=== PATIENT | male | born 1965 | race Caucasian/White ===

== ENCOUNTER 2019-08-08 14:23 | Emergency (ER) | payer OTHER ==
[2019-08-08] MEDS ORDERED: KETOROLAC 60 MG/2 ML VIAL IM STA (14:44)
[2019-08-08] MEDS ORDERED: predniSONE 50 MG TAB PO STA (14:44)
--- NOTE | 2019-08-08 14:46 | ED ---
General Adult HPI - General Chief complaint: Back Pain/Injury Stated complaint: Back Pain Time Seen by Provider: 08/08/19 14:28 Source: patient, RN notes reviewed, old records reviewed Mode of arrival: ambulatory Limitations: no limitations - History of Present Illness Initial comments: 54-year-old male patient with no pertinent past medical history of present CU chief complaint of left paralumbar back pain with radiculopathy extending down his posterior left leg. Patient reports that he did have a herniated disc resulting eye surgery approximately 2 years ago. Patient ports that he has been doing very well ever since including completing a 100 kilometer run within the last 6 months. Patient reports that approximately 2 weeks ago he twisted his back in an akward fashion has now been having left paralumbar back pain radiating down his posterior left leg. Denies any recent falls or trauma. Patient reports that he was seen at another facility approximately 1 week ago where he reportedly had normal lumbar films. Denies any chest pain or shortness of breath. Denies any saddle anesthesia, lower extremity weakness, loss of bowel or bladder control. Systemic: Pt denies fatigue, fever/chills, rash. Pt denies weakness, night sweats, weight loss. Neuro: Pt denies headache, visual disturbances, syncope or pre-syncope. HEENT: Pt denies ocular discharge or irritation, otalgia, rhinorrhea, pharyngitis or notable lymphadenopathy. Cardiopulmonary: Pt denies chest pain, SOB, heart palpitations, dyspnea on exertion. Abdominal/GI: Pt denies abdominal pain, n/v/d. : Pt denies dysuria, burning w/ urination, frequency/urgency. Denies new onset urinary or bowel incontinence. MSK: Pt denies loss of strength or function in extremities. Neuro: Pt denies new onset weakness. - Related Data Previous Rx's Medication Instructions Recorded predniSONE 50 mg PO DAILY #4 tab 08/08/19 Allergies Allergy/AdvReac Type Severity Reaction Status Date / Time No Known Allergies Allergy Verified 08/08/19 14:49 Review of Systems ROS Statement: Those systems with pertinent positive or pertinent negative responses have been documented in the HPI. ROS Other: All systems not noted in ROS Statement are negative. Past Medical History Past Medical History: No Reported History History of Any Multi-Drug Resistant Organisms: None Reported Past Surgical History: Back Surgery Past Psychological History: No Psychological Hx Reported Smoking Status: Never smoker Past Alcohol Use History: None Reported Past Drug Use History: None Reported General Exam - General Exam Comments Initial Comments: Constitutional: NAD, AOX3, Pt has pleasant affect. HEENT: NC/AT, trachea midline, neck supple, no lymphadenopathy. Posterior pharynx non erythematous, without exudates. External ears appear normal, without discharge. Mucous membranes moist. Eyes PERRLA, EOM intact. There is no scleral icterus. No pallor noted. Cardiopulmonary: RRR, no murmurs, rubs or gallops, no JVD noted. Lungs CTAB in anterior and posterior manrique. No peripheral edema. Abdominal exam: Abdomen soft and non-distended. Abdomen non-tender to palpation in all 4 quadrants. Bowel sounds active in LLQ. No hepatosplenomegaly. No ecchymosis Neuro: CN II-XII grossly intact. No nuchal rigidity. No raccon eyes, no erickson sign, no hemotympanum. No cervical spinal tenderness. MSK: Left paralumbar region mildly tender to palpation. No midline cervical thoracic lumbar tenderness. Ambulatory without difficulty, heel to toe walking intact. Left straight leg raise positive. Right straight leg raise negative. Distal pulses intact and equal. No posterior calf tenderness bilaterally, homans sign negative bilaterally. No erythema or skin changes. Posterior tibialis and radial pulse +2 bilaterally. Sensation intact in upper and lower extremities. Full active ROM in upper and lower extremities, 5/5 stregnth. Limitations: no limitations Course Vital Signs 08/08/19 14:46 Temperature 97 F L Pulse Rate 69 Respiratory 18 Rate Blood Pressure 156/89 O2 Sat by Pulse 98 Oximetry Medical Decision Making - Medical Decision Making 54-year-old male patient with no pertinent past medical history of presents to ED with chief complaint of left paralumbar back pain with radiculopathy extending down his posterior left leg. Patient reports that he did have a herniated disc resulting in surgery approximately 2 years ago. Patient reports that he has been doing very well ever since including completing a 100 kilometer run within the last 6 months. Patient reports that approximately 2 weeks ago he twisted his back in an akward fashion has now been having left paralumbar back pain radiating down his posterior left leg. Denies any recent falls or trauma. Patient reports that he was seen at another facility approximately 1 week ago where he reportedly had normal lumbar films. Denies any red flag symptoms. Pt VSS, afebrile. Physical exam consistent with lumbar back pain with radic ulopathy. Patient will be treated with one dose of Toradol and 5 days of prednisone. Reports the kidney function is normal. Denies any other complaints. Case discussed with Dr. Galvan. Disposition Clinical Impression: Lumbar back pain with radiculopathy affecting left lower extremity Disposition: HOME SELF-CARE Condition: Stable Instructions (If sedation given, give patient instructions): Acute Low Back Pain (ED) Additional Instructions: Take medications as directed. Follow up with primary care provider and return to ER if condition worsens. Prescriptions: predniSONE 50 mg PO DAILY #4 tab Is patient prescribed a controlled substance at d/c from ED?: No Referrals: None,Stated [Primary Care Provider] - 1-2 days
[2019-08-08 14:47] VITALS: BP 156/89; PULSE 69; RESP 18; TEMP 97
== END 2019-08-08 14:58 | disposition home or self-care (01) ==
LOC: EC 14:23
DX: M51.16 Intervertebral disc disorders with radiculopathy, lumbar region (principal); Z98.890 Other specified postprocedural states; X50.1XXA Overexertion from prolonged static or awkward postures, initial encounter; Y93.02 Activity, running; Y92.89 Other specified places as the place of occurrence of the external cause
CPT/HCPCS: 96372; 99283; J1885; J7512